=== PATIENT | female | born 1995 | race Caucasian/White ===

== ENCOUNTER 2016-09-21 20:49 | Emergency (ER) | payer BC ==
[~2016-09-21] VITALS: Ht 170.2 cm; Wt 63.0 kg
[2016-09-21] MEDS ORDERED: EPINEPHRINE 1:1000 1 MG/ML AMP INJ ONE (21:15)
[2016-09-21] MEDS ORDERED: DIPHENHYDRAMINE 50MG/ML VIAL IV ONE (21:15)
[2016-09-21] MEDS ORDERED: METHYLPREDNISOLONE SOD SUCC 125 MG/2 ML VIAL IV ONE (21:15)
[2016-09-21] MEDS ORDERED: FAMOTIDINE 20MG/2ML VIAL IV ONE (21:15)
[2016-09-22 00:07] VITALS: BP 122/79
== END 2016-09-22 00:47 | disposition home or self-care (01) ==
LOC: ER 20:57
DX: T78.2XXA Anaphylactic shock, unspecified, initial encounter (principal); H57.8 Other specified disorders of eye and adnexa
CPT/HCPCS: 96372; 96374; 96375; 99291; J0171; J1200; J2930; J3490